=== PATIENT | female | born 1990 | race Caucasian/White ===

== ENCOUNTER 2018-05-09 12:33 | Day surgery (SDC) | payer BC ==
[2018-05-09] MEDS ORDERED: fentaNYL 100 MCG/2 ML INJECTION (J3010) As Ordered ×2 (12:41→14:20)
[2018-05-09] MEDS ORDERED: PROPOFOL 200 MG/20 ML VIAL As Ordered (12:41)
[2018-05-09] MEDS ORDERED: MIDAZOLAM INJ 2 MG/2 ML VIAL (J2250) As Ordered ×2 (12:41→13:30)
[2018-05-09] MEDS ORDERED: ROCURONIUM BROMIDE 50 MG/5 ML VIAL As Ordered (12:41)
[2018-05-09] MEDS ORDERED: LIDOCAINE 2% INJ 100 MG/5 ML SDV (FOR ANES.) As Ordered (12:41)
[2018-05-09] MEDS ORDERED: dexameTHASONE 4 MG/ML 1ML VIAL (J1100) As Ordered (12:41)
[2018-05-09] MEDS ORDERED: ONDANSETRON 4MG/2ML VIAL (J2405) As Ordered ×2 (12:41→15:15)
[2018-05-09] MEDS ORDERED: BUPIVACAINE HCL 0.25% 30 ML VIAL As Ordered (12:55)
[2018-05-09 13:00] LABS: HEMOGLOBIN 13.2 g/dl (12.0-15.5); MEAN CORPUSCULAR HEMOGLOBIN 28.9 pg (27.0-33.0); MEAN CORPUSCULAR HGB CONC 33.8 g/dl (32.0-36.5); MEAN CORPUSCULAR VOLUME 85.5 fl (80.0-96.0); PLATELET COUNT, AUTOMATED 220 10^3/uL (150-450); RED BLOOD COUNT 4.56 10^6/uL (4.00-5.40); RED CELL DISTRIBUTION WIDTH 12.7 % (11.5-14.5)
[2018-05-09 13:23] LABS: CONTROL LINE UCG INT CTR LINE PRESENT; URINE PREG TEST NEGATIVE (NEGATIVE)
[2018-05-09] MEDS ORDERED: SUGAMMADEX SODIUM 500 MG/5 ML VIAL (BRIDION) As Ordered (14:05)
[2018-05-09] MEDS ORDERED: KETOROLAC 60 MG/2 ML VIAL (J1885) As Ordered (14:20)
[2018-05-09] MEDS: ONDANSETRON 4MG/2ML VIAL (J2405) IV (15:15)
[2018-05-09] MEDS ORDERED: LR 1,000 ML IV ×2 (15:45)
[2018-05-09] MEDS ORDERED: PERCOCET 5MG/325MG TAB PO ×2 (15:45)
[2018-05-09] MEDS ORDERED: HYDROMORPHONE HCL 0.5 MG/ 0.5 ML SYRINGE (J1170 PER 1) IV (15:45)
[2018-05-09] MEDS ORDERED: fentaNYL 100 MCG/2 ML INJECTION (J3010) IV (15:45)
[2018-05-09] MEDS: PERCOCET 5MG/325MG TAB PO ×2 (16:02→16:56)
[2018-05-09] MEDS ORDERED: METOCLOPRAMIDE INJ 10MG/2ML VIAL (J2765) As Ordered ×2 (16:35→16:36)
[2018-05-09] MEDS: METOCLOPRAMIDE INJ 10MG/2ML VIAL (J2765) IV (16:40)
== END 2018-05-09 18:05 | disposition home or self-care (01) ==
LOC: M SDC 12:33
DX: Z30.2 Encounter for sterilization (principal); D17.79 Benign lipomatous neoplasm of other sites; Z88.1 Allergy status to other antibiotic agents
CPT/HCPCS: 58671

== ENCOUNTER → 2020-05-03 | Outpatient (REF) | payer BC ==
[~2020-05-03] MED LIST: DOCU10CA PO; IBUP80TA PO; MAPA500T2 PO; MULT1TAB10 PO; OXYC1TAB23 PO; PRENTAB55 PO; PROBCAP14 PO
== END ==
LOC: M LAB REF 10:00
PROVIDERS: ATTEND Specialist
DX: Z12.4 Encounter for screening for malignant neoplasm of cervix (principal)

== ENCOUNTER → 2023-08-30 | Outpatient (REF) | payer BC | LOC: M SFHCWAGY 17:16 | PROVIDERS: ATTEND Specialist | DX: Z12.4 Encounter for screening for malignant neoplasm of cervix (principal) | CPT/HCPCS: 87624; G0123 ==